=== PATIENT | male | born 1985 | race Caucasian/White ===

== ENCOUNTER → 2017-08-31 | Outpatient (REF) | payer BC | LOC: M LAB REF 08:31 | DX: J02.9 Acute pharyngitis, unspecified (principal) | CPT/HCPCS: 87070 ==

== ENCOUNTER → 2017-11-07 | Outpatient (REF) | payer BC | LOC: M SMT 13:42 | DX: Z30.2 Encounter for sterilization (principal) | CPT/HCPCS: 88302 ==

== ENCOUNTER 2017-11-25 10:45 | Emergency (ER) | payer BC ==
[2017-11-25] MEDS ORDERED: CLINDAMYCIN 150 MG CAP As Ordered (11:52)
[2017-11-25] MEDS: CLINDAMYCIN 150 MG CAP PO (12:00)
== END 2017-11-25 12:06 | disposition home or self-care (01) ==
LOC: M ED 10:45
DX: L08.9 Local infection of the skin and subcutaneous tissue, unspecified (principal); Z98.52 Vasectomy status; Z79.899 Other long term (current) drug therapy; Z79.2 Long term (current) use of antibiotics; Z79.52 Long term (current) use of systemic steroids
CPT/HCPCS: 99282

== ENCOUNTER → 2018-08-05 | Outpatient (CLI) | payer OTHER ==
[~2018-08-05] MED LIST: BENA25TA10 PO; CLAR1TAB2 PO; CLIN150C14 PO; IBUP-1022 PO; KETO2CR TOP; PRED20TA PO; SULFAMETHOXAZOLE-TMP PO
--- NOTE | 2018-08-05 19:39 | REP ---
Right hand four views History: Injury There is no acute fracture or dislocation. The joint spaces are normal in appearance. Impression: There is no acute fracture or dislocation. Electronically Signed by Jaren Saenz MD 08/05/2018 07:30 P
== END ==
LOC: M LRY 19:11
PROVIDERS: ATTEND Nurse Practitioner Family
DX: S69.91XA Unspecified injury of right wrist, hand and finger(s), initial encounter (principal); W31.9XXA Contact with unspecified machinery, initial encounter; Y92.89 Other specified places as the place of occurrence of the external cause

== ENCOUNTER → 2018-09-18 | Outpatient (REF) | payer BC | LOC: M LAB REF 12:20 | PROVIDERS: ATTEND Physician Assistant | DX: J02.9 Acute pharyngitis, unspecified (principal) ==

== ENCOUNTER → 2018-11-19 | Outpatient (CLI) | payer BC ==
--- NOTE | 2018-11-19 16:48 | REP ---
Left toes four views History: Contusion left fifth toe There is a nondisplaced fracture of the base of the proximal phalange of the 5th digit. There is no dislocation. The joint spaces are normal in appearance. Impression: Nondisplaced fracture of the the fifth proximal phalange. Electronically Signed by Jaren Saenz MD 11/19/2018 04:39 P
== END ==
LOC: M WUC 16:27
PROVIDERS: ATTEND Physician Assistant
DX: S92.535A Nondisplaced fracture of distal phalanx of left lesser toe(s), initial encounter for closed fracture (principal); X58.XXXA Exposure to other specified factors, initial encounter; Y92.9 Unspecified place or not applicable

== ENCOUNTER 2020-01-14 16:42 | Day surgery (SDC) | payer BC ==
[~2020-01-14] VITALS: Ht 185.4 cm; Wt 125.7 kg
[~2020-01-14 16:42] MED LIST changes: -AMOX875T2 PO; -GASTROGRAFIN SOLUTION 30ML (Q9963) As Ordered ONE; -ISOVUE-370 76% 100ML VIAL As Ordered ONE; -PERCOCET PO
[2020-01-14] MEDS ORDERED: NS 1,000 ML IV SCH (17:00)
[2020-01-14] MEDS ORDERED: PIPERACILLIN/TAZOBACTAM SOD 3.375 GM in D5W MINI-BAG PLUS 50 ML IV ONE (17:00)
[2020-01-14] MEDS ORDERED: LR 1,000 ML IV SCH ×2 (18:15→21:00)
[2020-01-14] MEDS ORDERED: LIDOCAINE 2% 100MG/5ML SDV (FOR ANES.) As Ordered ONE (19:21)
[2020-01-14] MEDS ORDERED: MIDAZOLAM INJ 2MG/2ML VIAL (J2250 PER 1MG) As Ordered ONE (19:21)
[2020-01-14] MEDS ORDERED: fentaNYL 100 MCG/2 ML INJECTION (J3010) As Ordered ONE ×3 (19:21→21:01)
[2020-01-14] MEDS ORDERED: ROCURONIUM BROMIDE 50 MG/5 ML VIAL As Ordered ONE (19:21)
[2020-01-14] MEDS ORDERED: dexameTHASONE 4 MG/ML 1ML VIAL (J1100 PER 1MG) As Ordered ONE (19:21)
[2020-01-14] MEDS ORDERED: ONDANSETRON 4MG/2ML VIAL As Ordered ONE (19:21)
[2020-01-14] MEDS ORDERED: KETOROLAC 60MG 2ML VIAL As Ordered ONE (19:21)
[2020-01-14] MEDS ORDERED: SUGAMMADEX SODIUM 500 MG/5 ML VIAL (BRIDION) As Ordered ONE (19:21)
[2020-01-14] MEDS ORDERED: METOCLOPRAMIDE INJ 10MG/2ML VIAL (J2765 PER 1) As Ordered ONE (19:21)
[2020-01-14] MEDS ORDERED: propofoL 200 MG/20 ML VIAL As Ordered ONE ×2 (19:21→20:02)
[2020-01-14] MEDS ORDERED: BUPIVACAINE HCL 0.25% 30ML VIAL As Ordered ONE (19:35)
[2020-01-14] MEDS ORDERED: LIDOCAINE 1% SDV 30ML VIAL As Ordered ONE (19:35)
[2020-01-14] MEDS ORDERED: ACETAMINOPHEN 1000MG 100ML IV BTL (OFIRMEV) (J0131 PER 10MG) As Ordered ONE (20:10)
[2020-01-14] MEDS ORDERED: ONDANSETRON 4MG/2ML VIAL IV PRN ×2 (21:00→21:15)
[2020-01-14] MEDS ORDERED: PERCOCET 5MG/325MG TAB PO PRN (21:15)
[2020-01-14] MEDS ORDERED: KETOROLAC 30 MG/ML 1ML VIAL IV PRN (21:15)
[2020-01-14] MEDS ORDERED: MORPHINE 2 MG/ML 1ML VIAL (J2270) IV PRN (21:15)
[2020-01-14] MEDS ORDERED: ACETAMINOPHEN TAB 650MG DOSE (2X325MG) PO PRN (21:15)
[2020-01-14] MEDS ORDERED: oxyCODONE 5MG TAB As Ordered ONE (21:18)
[2020-01-14] MEDS: fentaNYL 100 MCG/2 ML INJECTION (J3010) IV PRN ×4 (21:23→21:37)
[2020-01-14] MEDS: oxyCODONE 5MG TAB PO PRN ×2 (21:23→21:49)
[2020-01-14 22:00] VITALS: BP 118/83
[2020-01-14] MEDS: LR 1,000 ML IV SCH (22:21)
[2020-01-14 22:30] VITALS: BP 116/78
[2020-01-14 23:00] VITALS: BP 116/76
[2020-01-14] MEDS: AMPICILLIN SOD/SULBACTAM SOD 3 GM in D5W MINI-BAG PLUS 100 ML IV SCH (23:58)
[2020-01-15] VITALS: BP 114/73
[2020-01-15 01:00] VITALS: BP 108/69
[2020-01-15 02:00] VITALS: BP 107/68
[2020-01-15] MEDS: PERCOCET 5MG/325MG TAB PO PRN ×2 (02:37→08:10)
[2020-01-15 03:00] VITALS: BP 104/67
[2020-01-15 06:00] VITALS: BP 105/65
[2020-01-15] MEDS: AMPICILLIN SOD/SULBACTAM SOD 3 GM in D5W MINI-BAG PLUS 100 ML IV SCH ×2 (06:04→12:00)
[2020-01-15 06:49] LABS: BASO % 0.1 % (0.0-1.0); HEMATOCRIT 42.1 % (42.0-52.0); HEMOGLOBIN 13.8 g/dl (13.5-17.5); LYMPH # 0.8 10^3/uL (1.5-5.0); LYMPH % 11.1 % (24.0-44.0); MEAN CORPUSCULAR HEMOGLOBIN 27.6 pg (27.0-33.0); MEAN CORPUSCULAR HGB CONC 32.8 g/dl (32.0-36.5); MEAN CORPUSCULAR VOLUME 84.2 fl (80.0-96.0); MONO # 0.4 10^3/uL (0.0-0.8); MONO % 4.9 % (0.0-5.0); NEUTROPHILS # 6.3 10^3/uL (1.5-8.5); NEUTROPHILS % 83.5 % (36.0-66.0); PLATELET COUNT, AUTOMATED 313 10^3/uL (150-450); WHITE BLOOD COUNT 7.6 10^3/uL (4.0-10.0)
[2020-01-15 07:13] LABS: BLOOD UREA NITROGEN 9 MG/DL (7-18); CALCIUM LEVEL 8.5 MG/DL (8.5-10.1); CARBON DIOXIDE LEVEL 26 MEQ/L (21-32); CHLORIDE LEVEL 102 MEQ/L (98-107); CREATININE FOR GFR 0.67 MG/DL (0.70-1.30); GLOMERULAR FILTRATION RATE > 60.0 (>60); GLUCOSE, FASTING 113 MG/DL (70-100); POTASSIUM SERUM 4.3 MEQ/L (3.5-5.1); SODIUM LEVEL 138 MEQ/L (136-145)
[2020-01-15] MEDS: LR 1,000 ML IV SCH (08:12)
--- NOTE | 2020-01-15 08:54 | ROOPDOC ---
[facility] Report Of Operation Report of Operation DATE OF PROCEDURE: 01/14/20 PREPROCEDURE DIAGNOSES: Acute Appendicitis POSTPROCEDURE DIAGNOSES: Acute Appendicitis. PROCEDURE: Laparoscopic Appendectomy. SURGEON: Nabeel Hernández MD SUPERVISOR HOT DIP PLATING: ANESTHESIA: General Anesthesia. ESTIMATED BLOOD LOSS: Approximately 10 mL. COMPLICATIONS: none. PROCEDURE NOTE: Distended, acutely inflamed and thickened appendix throughout its course, thickened mesoappendix. The tip of the appendix may be focally perforated. Small amount of serous murky fluid in the right gutter, serous fluid in the pelvis.. DESCRIPTION OF PROCEDURE: Patient has been given a dose of Zosyn at the emergency room.Patient was brought to the operating room, placed supine on the table. Sequential compression device placed for DVT prophylaxis. General endotracheal anesthesia started. The abdomen prepped and draped in usual sterile fashion. We paused for a surgical timeout using both pre-incision safety checklist to verify correct patient, procedure site and additional clinical information prior to beginning the procedure Entry into the abdomen done through an incision above the umbilicus. Veress needle inserted on a controlled fashion. Intra-abdominal placement confirmed with saline drop technique. CO2 insufflation started to a pressure of 15 mmHg. Using the same incision an 8 mm port was placed under direct vision of laparoscope. Insertion site was inspected for injury and none was found. He was placed on a Trendelenburg position the right side tilted to about 30 to allow for better visualization of the appendix. Two 5 mm working ports were placed at the suprapubic area and left lower quadrant area under direct vision. An 8 mm port was exchanged for the umbilical port site. Operative findings: The appendix is visualized at the right gutter slightly and updated in its course. It appears acutely congested, thickened and inflamed throughout its course. The mesoappendix also appears thickened and shortened. This does not extend into the cecum. The insertion of the appendix is close to the insertion of the terminal ileum. There is small amount of murky fluid at the right gutter. There is serous fluid in the pelvis. Visualized portions small bowel appears within normal limits. The Surrounding bowels retracted away from the appendix. This was grasped to pull the base of the appendix into view. The mesoappendix was divided using Harmonic scalpel down to the base. Two PDS Endoloops were placed to ligate the appendix at its base then divided with a Harmonic Scalpel the stump cauterized. Stump appears healthy. Appendix was then delivered into an Endo Catch bag and extracted through the umbilical port site which was slightly enlarged to accommodate a 10 mm bag.. After re-insufflation the surgical site was inspected for hemostasis, the visualized fluid collections suctioned off. Surrounding areas of the abdomen and inspected for fluid collections or signs of injury. A 10 flat KAREN drain was left in place close to the abdomen initial stump for monitoring and for drainage of fluid irrigation. The abdomen was deflated. All ports removed. The umbilical fascial defect repaired with 0 Vicryl in a mattress fashion. All skin incisions closed with 4-0 Monocryl in a subcuticular fashion. Steri-Strips and gauze dressing used for wound coverage. Patient was promptly awake and extubated and brought to recovery room stable. All counts of sponges and instruments verified to be correct. NABEEL HERNÁNDEZ MD Jan 15, 2020 08:54
--- NOTE | 2020-01-15 08:57 | IPNPDOC ---
Text Note Date of Service The patient was seen on 01/15/20. NOTE Patient reports some mild increased discomfort at the umbilical port site as well as the right lower quadrant area when he was ambulating this morning, had some difficulty sleeping. Otherwise he is hemodynamically stable, afebrile. On examination Overall looks more comfortable than his presentation, mild discomfort with movement Abdomen is nondistended, soft. He has 3 port sites. The left lower quadrant port site is covered with a 2 x 2 gauze and a Tegaderm from the oozing not much skin bruising visible. The other port sites are covered with Dermabond are clean and dry. Mild discomfort on palpation around the umbilicus minimal at the right lower quadrant area. His labs were reviewed WBC is normal. Impression and plan Postop day 1 following laparoscopic appendectomy for acute appendicitis I have try some solid foods today for lunch time and if he tolerates this should be able to go home. I will continue him on a week's worth of antibiotics as I think there is a focal perforation at the tip. Follow-up in clinic in 2 weeks. VS,Ele, I+O VS, Ele, I+O Laboratory Tests 01/15/20 06:23 Vital Signs Date Time Temp Pulse Resp B/P (MAP) Pulse Ox O2 Delivery O2 Flow Rate FiO2 01/15/20 08:10 16 01/15/20 06:00 97.9 70 105/65 (78) 97 Room Air 01/14/20 21:49 2.0 I&O- Last 24 Hours up to 6 AM 01/15/20 06:00 Intake Total 2120 ml Output Total 10 ml Balance 2110 ml REGAN WANG MD Jan 15, 2020 08:57
[2020-01-15] MEDS ORDERED: SENOKOT S TAB PO SCH (09:00)
[2020-01-15] MEDS ORDERED: PERCOCET PO (09:19)
[2020-01-15] MEDS ORDERED: AMOX875T2 PO (09:20)
== END 2020-01-15 13:06 | disposition home or self-care (01) ==
LOC: M ED 16:42 → M SDC 17:55 → ENRESERV 21:03 → M MSPAV 21:58 → M SDC 01-15 13:06
PROVIDERS: ATTEND Surgery
DX: K35.890 Other acute appendicitis without perforation or gangrene (principal)
CPT/HCPCS: 36415; 44970; 80048; 85025; 88304; 96361; 96365; 96375; 99284; J0131; J1100; J1885; J2250; J2405; J2543; J2765; J3010; U0002

== ENCOUNTER → 2020-01-14 | Outpatient (CLI) | payer BC ==
[~2020-01-14] MED LIST changes: +AMOX875T2 PO; +GASTROGRAFIN SOLUTION 30ML (Q9963) As Ordered ONE; +ISOVUE-370 76% 100ML VIAL As Ordered ONE; +PERCOCET PO
[2020-01-14 15:11] LABS: BASO # 0.1 10^3/uL (0.0-0.2); BASO % 0.4 % (0.0-1.0); EOS % 0.3 % (0.0-3.0); HEMATOCRIT 45.5 % (42.0-52.0); HEMOGLOBIN 14.8 g/dl (13.5-17.5); LYMPH # 1.4 10^3/uL (1.5-5.0); LYMPH % 11.9 % (24.0-44.0); MEAN CORPUSCULAR HEMOGLOBIN 27.5 pg (27.0-33.0); MEAN CORPUSCULAR HGB CONC 32.5 g/dl (32.0-36.5); MEAN CORPUSCULAR VOLUME 84.6 fl (80.0-96.0); MONO # 0.8 10^3/uL (0.0-0.8); MONO % 6.9 % (0.0-5.0); NEUTROPHILS # 9.4 10^3/uL (1.5-8.5); NEUTROPHILS % 80.1 % (36.0-66.0); PLATELET COUNT, AUTOMATED 320 10^3/uL (150-450); RED BLOOD COUNT 5.38 10^6/uL (4.30-6.10); WHITE BLOOD COUNT 11.7 10^3/uL (4.0-10.0)
[2020-01-14 15:36] LABS: ALBUMIN 4.2 GM/DL (3.2-5.2); ALT/SGPT 24 U/L (12-78); BILIRUBIN,TOTAL 0.6 MG/DL (0.2-1.0); BLOOD UREA NITROGEN 10 MG/DL (7-18); CALCIUM LEVEL 8.8 MG/DL (8.5-10.1); CARBON DIOXIDE LEVEL 26 MEQ/L (21-32); CHLORIDE LEVEL 103 MEQ/L (98-107); CREATININE FOR GFR 0.69 MG/DL (0.70-1.30); GLOMERULAR FILTRATION RATE > 60.0 (>60); GLUCOSE, FASTING 76 MG/DL (70-100); LIPASE 109 U/L (73-393); POTASSIUM SERUM 3.7 MEQ/L (3.5-5.1); SODIUM LEVEL 135 MEQ/L (136-145); TOTAL PROTEIN 8.3 GM/DL (6.4-8.2)
--- NOTE | 2020-01-15 00:33 | REP ---
REASON FOR EXAM: Right lower quadrant pain. There are no priors for comparison. CONTRAST: 100 mL Isovue-370. The lung bases are clear. The liver, gallbladder, spleen, pancreas, adrenal glands, and kidneys are within normal limits. The abdominal aorta and para-aortic regions are within normal limits. There is no free fluid or free air in the abdomen. The appendix is abnormally dilated, and there is fatty infiltration in the mesoappendix and surrounding the appendix. There is no evidence of an intra-abdominal or intrapelvic mass or adenopathy. The osseous structures are within normal limits. IMPRESSION: Acute appendicitis. Electronically Signed by Canelo Pickett DO 01/15/2020 08:17 A
== END ==
LOC: M RAD 14:48
PROVIDERS: ATTEND Physician Assistant
DX: K35.80 Unspecified acute appendicitis (principal)
CPT/HCPCS: 36415; 74177; 80053; 83690; 85025; Q9963; Q9967

== ENCOUNTER → 2020-08-12 | Outpatient (CLI) | payer SELFPAY ==
[~2020-08-12] MED LIST changes: +AMOX875T2 PO; -CLIN150C14 PO; +CLIN150C15 PO; +PERCOCET PO
== END ==
LOC: M LABSMTC 10:32
PROVIDERS: ATTEND Pediatrics
DX: Z20.822 Contact with and (suspected) exposure to COVID-19 (principal)

== ENCOUNTER 2022-01-29 11:22 | Emergency (ER) | payer BC ==
[~2022-01-29] VITALS: Ht 185.4 cm; Wt 129.6 kg
[~2022-01-29 11:22] MED LIST changes: -CLIN150C15 PO; +CLIN150C17 PO
[2022-01-29 11:23] VITALS: BP 130/90
[2022-01-29] MEDS ORDERED: AMPH1TAB2 (11:36)
[2022-01-29] MEDS ORDERED: HYDR50TA70 (11:36)
[2022-01-29] MEDS ORDERED: CLON0.5T2 (11:36)
[2022-01-29] MEDS ORDERED: LIDOCAINE 5% (LIDODERM) PATCH TD ONE (14:05)
[2022-01-29] MEDS ORDERED: KETOROLAC 60MG 2ML VIAL IM ONE (14:05)
[2022-01-29] MEDS ORDERED: HYDR-3713 PO (14:13)
[2022-01-29] MEDS ORDERED: IBUP-1022 PO (14:13)
[2022-01-29] MEDS ORDERED: ASPE4PAD TOP (14:13)
[2022-01-30] MEDS ORDERED: **NOTE PATIENT COMMENT** MISC XX ONE (02:00)
== END 2022-01-29 14:59 | disposition home or self-care (01) ==
LOC: M ED 11:22
DX: S29.001A Unspecified injury of muscle and tendon of front wall of thorax, initial encounter (principal); W11.XXXA Fall on and from ladder, initial encounter; Y92.099 Unspecified place in other non-institutional residence as the place of occurrence of the external cause
CPT/HCPCS: 71101; 96372; 99284; J1885

== ENCOUNTER 2022-08-20 11:19 | Inpatient (IN) | payer BC, OTHER ==
[~2022-08-20] VITALS: Ht 185.4 cm; Wt 112.6 kg
[~2022-08-20 11:19] MED LIST changes: +AMPH1TAB2; +ASPE4PAD TOP; +CLON0.5T2 PO; +HYDR-3713 PO; +HYDR50TA70 PO; +ONDA4TAB6 PO
[2022-08-20 12:13] LABS: HEMOGLOBIN 14.1 g/dl (13.5-17.5); MEAN CORPUSCULAR HEMOGLOBIN 27.3 pg (27.0-33.0); MEAN CORPUSCULAR VOLUME 85.1 fl (80.0-96.0); PLATELET COUNT, AUTOMATED 372 10^3/uL (150-450); RED BLOOD COUNT 5.17 10^6/uL (4.30-6.10); WHITE BLOOD COUNT 5.5 10^3/uL (4.0-10.0)
[2022-08-20 12:37] LABS: ETHYL ALCOHOL (ETHANOL) 0.047 % (0.000-0.010)
[2022-08-20 12:39] LABS: SALICYLATE LEVEL < 3.0 MG/DL (<30)
[2022-08-20 12:40] LABS: ACETAMINOPHEN LEVEL < 2.0 UG/ML (10.0-20.0); ALBUMIN 4.1 G/DL (3.2-5.2); ALKALINE PHOSPHATASE 86 U/L (46-116); ALT/SGPT 19 U/L (7.0-40); AST/SGOT 24 U/L (<34); BILIRUBIN,DIRECT < 0.1 MG/DL (<0.4); BILIRUBIN,TOTAL 0.3 MG/DL (0.3-1.2); BLOOD UREA NITROGEN 8 MG/DL (9-23); CALCIUM LEVEL 8.7 MG/DL (8.5-10.1); CARBON DIOXIDE LEVEL 26 MMOL/L (20-31); CHLORIDE LEVEL 106 MMOL/L (98-107); CREATININE FOR GFR 0.71 MG/DL (0.70-1.30); GLOMERULAR FILTRATION RATE > 60.0 (>60); GLUCOSE, FASTING 79 MG/DL (60-100); POTASSIUM SERUM 4.1 MMOL/L (3.5-5.1); SODIUM LEVEL 142 MMOL/L (136-145); TOTAL PROTEIN 7.2 G/DL (5.7-8.2)
[2022-08-20 12:43] LABS: THYROID STIMULATING HORMONE 0.626 uIU/ML (0.55-4.78)
[2022-08-20 14:19] LABS: AMPHETAMINES LEVEL URINE NEGATIVE (NEGATIVE); BARBITURATES URINE NEGATIVE (NEGATIVE); BENZODIAZEPINES URINE NEGATIVE (NEGATIVE); COCAINE METABOLITE URINE NEGATIVE (NEGATIVE); METHADONE URINE NEGATIVE (NEGATIVE); OPIATES URINE NEGATIVE (NEGATIVE); PHENCYCLIDINE URINE NEGATIVE (NEGATIVE)
[2022-08-20 14:28] LABS: CANNABINOIDS URINE POSITIVE (NEGATIVE)
[2022-08-20] MEDS ORDERED: LORA-622 PO (14:41)
[2022-08-20] MEDS ORDERED: ADDE30TA PO (14:41)
[2022-08-20] MEDS ORDERED: FLON1SPR NARES (14:41)
[2022-08-20] MEDS ORDERED: VITA100093 PO (14:41)
[2022-08-20] MEDS ORDERED: VITA250T4 PO (14:41)
[2022-08-20] MEDS ORDERED: ADDE20TA PO (14:41)
[2022-08-20] MEDS ORDERED: HOME MED LIST COMPLETE! XX SCH (14:45)
[2022-08-20] MEDS ORDERED: ADDERALL 5 MG TAB PO ONE (16:00)
[2022-08-20] MEDS ORDERED: clonazePAM 0.5 MG TAB PO PRN (17:25)
[2022-08-20] MEDS: hydrOXYzine 50 MG TAB PO PRN (21:25)
[2022-08-21] MEDS: LORATADINE 10 MG TAB PO SCH (09:00)
[2022-08-21] MEDS ORDERED: ASCORBIC ACID 250 MG TAB PO SCH (09:00)
[2022-08-21] MEDS: ADDERALL 5 MG TAB PO SCH (09:45)
[2022-08-21] MEDS: VITAMIN D 1,000 INTERNATIONAL UNITS TABLET PO SCH (09:45)
[2022-08-21] MEDS: hydrOXYzine 50 MG TAB PO PRN ×2 (12:56→22:43)
[2022-08-21] MEDS ORDERED: ADDERALL 5 MG TAB PO SCH (16:00)
[2022-08-22] MEDS ORDERED: OLANZapine ORAL DISINTEGRATING TAB 5MG PO ONE (03:35)
[2022-08-22] MEDS: VITAMIN D 1,000 INTERNATIONAL UNITS TABLET PO SCH (08:47)
[2022-08-22] MEDS: ADDERALL 5 MG TAB PO SCH (08:48)
[2022-08-22] MEDS: LORATADINE 10 MG TAB PO SCH (08:48)
[2022-08-22 09:07] VITALS: BP 132/97
[2022-08-22 09:11] VITALS: BP 132/97
[2022-08-22] MEDS ORDERED: LORazepam 2 MG TAB PO PRN (09:20)
[2022-08-22] MEDS ORDERED: MOM 30ML SUSPENSION UDC PO PRN (09:20)
[2022-08-22] MEDS ORDERED: MAALOX 30 ML SUSP *UDC PO PRN (09:20)
[2022-08-22] MEDS ORDERED: FLUTICASONE PROP 0.05% NASAL SPRAY 16 GM (FLONASE) NARES PRN (09:20)
[2022-08-22] MEDS ORDERED: OLANZapine ORAL DISINTEGRATING TAB 5MG PO PRN (09:20)
[2022-08-22] MEDS ORDERED: IBUPROFEN 400MG TAB PO PRN (09:20)
[2022-08-22] MEDS: FOLIC ACID 1MG TAB PO SCH (12:49)
[2022-08-22] MEDS: MULTIVITAMINS/MINERALS THERAP 1 TAB PO SCH (12:49)
[2022-08-22] MEDS: THIAMINE 100 MG TAB PO SCH ×2 (12:49→20:29)
[2022-08-22] MEDS: ASCORBIC ACID 250 MG TAB PO SCH (12:49)
[2022-08-22 14:17] VITALS: BP 132/79
[2022-08-22 16:41] VITALS: BP 128/72
[2022-08-22] MEDS: traZODone 50 MG TAB PO PRN (20:29)
[2022-08-23 06:27] VITALS: BP 145/88
[2022-08-23 08:00] VITALS: BP 145/88
[2022-08-23] MEDS: LORATADINE 10 MG TAB PO SCH (08:54)
[2022-08-23] MEDS: FOLIC ACID 1MG TAB PO SCH (08:56)
[2022-08-23] MEDS: MULTIVITAMINS/MINERALS THERAP 1 TAB PO SCH (08:56)
[2022-08-23] MEDS: THIAMINE 100 MG TAB PO SCH ×2 (08:56→20:49)
[2022-08-23] MEDS: VITAMIN D 1,000 INTERNATIONAL UNITS TABLET PO SCH (08:56)
[2022-08-23] MEDS: ASCORBIC ACID 250 MG TAB PO SCH (08:56)
[2022-08-23 16:00] VITALS: BP 127/73
[2022-08-23 16:13] VITALS: BP 127/73
[2022-08-23] MEDS: traZODone 50 MG TAB PO PRN (20:52)
[2022-08-23 22:00] VITALS: BP 130/89
[2022-08-24 06:39] VITALS: BP 100/64
[2022-08-24] MEDS: ASCORBIC ACID 250 MG TAB PO SCH (08:44)
[2022-08-24] MEDS: VITAMIN D 1,000 INTERNATIONAL UNITS TABLET PO SCH (08:44)
[2022-08-24] MEDS: FOLIC ACID 1MG TAB PO SCH (08:44)
[2022-08-24] MEDS: MULTIVITAMINS/MINERALS THERAP 1 TAB PO SCH (08:44)
[2022-08-24] MEDS: LORATADINE 10 MG TAB PO SCH (08:45)
== END 2022-08-24 10:48 | disposition home or self-care (01) | DRG 753 ==
LOC: M ED 11:19 → M ED INP 08-22 09:19 → M PSY 08-22 11:54
PROVIDERS: ADMIT Student in an Organized Health Care Education/Training Program; ATTEND Psychiatry & Neurology Psychiatry
DX: F39 Unspecified mood [affective] disorder (principal); F10.94 Alcohol use, unspecified with alcohol-induced mood disorder; F12.10 Cannabis abuse, uncomplicated; F90.9 Attention-deficit hyperactivity disorder, unspecified type; R45.851 Suicidal ideations; Z20.822 Contact with and (suspected) exposure to COVID-19; Z63.0 Problems in relationship with spouse or partner; Z83.3 Family history of diabetes mellitus; Z79.899 Other long term (current) drug therapy

== ENCOUNTER → 2022-10-11 | Outpatient (CLI) | payer OTHER ==
[~2022-10-11] MED LIST changes: +ADDE20TA PO; +ADDE30TA PO; +FLON1SPR NARES; +LORA-622 PO; +VITA100093 PO; +VITA250T4 PO
== END ==
LOC: M WUC 15:44
PROVIDERS: ATTEND Nurse Practitioner Family
DX: S92.352A Displaced fracture of fifth metatarsal bone, left foot, initial encounter for closed fracture (principal); Y93.9 Activity, unspecified; Y92.9 Unspecified place or not applicable

== ENCOUNTER 2023-02-04 03:03 | Emergency (ER) | payer OTHER ==
[~2023-02-04] VITALS: Ht 193 cm; Wt 137.0 kg
[2023-02-04 03:03] VITALS: BP 133/83; TEMP 97.4; O2SAT 97
== END 2023-02-04 06:43 | disposition left against medical advice (07) ==
LOC: M ED 03:03
DX: Z53.21 Procedure and treatment not carried out due to patient leaving prior to being seen by health care provider (principal)

== ENCOUNTER → 2023-02-05 | Outpatient (REF) | payer OTHER | LOC: M LAB REF 09:48 | PROVIDERS: ATTEND Physician Assistant Medical | DX: B88.9 Infestation, unspecified (principal); R21 Rash and other nonspecific skin eruption ==

== ENCOUNTER → 2023-02-06 | Outpatient (REF) | payer OTHER ==
[2023-02-06 17:40] LABS: BASO # 0.1 10^3/uL (0.0-0.2); EOS # 0.5 10^3/uL (0.0-0.5); EOS % 8.5 % (0.0-3.0); HEMATOCRIT 43.7 % (42.0-52.0); HEMOGLOBIN 13.8 g/dl (13.5-17.5); LYMPH # 1.7 10^3/uL (1.5-5.0); LYMPH % 26.4 % (24.0-44.0); MEAN CORPUSCULAR HEMOGLOBIN 27.4 pg (27.0-33.0); MEAN CORPUSCULAR HGB CONC 31.6 g/dl (32.0-36.5); MEAN CORPUSCULAR VOLUME 86.7 fl (80.0-96.0); MONO # 0.4 10^3/uL (0.0-0.8); MONO % 7.1 % (2.0-8.0); NEUTROPHILS # 3.5 10^3/uL (1.5-8.5); NEUTROPHILS % 56.7 % (36.0-66.0); PLATELET COUNT, AUTOMATED 379 10^3/uL (150-450); RED BLOOD COUNT 5.04 10^6/uL (4.30-6.10); WHITE BLOOD COUNT 6.2 10^3/uL (4.0-10.0)
== END ==
LOC: M LAB REF 16:46
PROVIDERS: ATTEND Physician Assistant Medical
DX: R21 Rash and other nonspecific skin eruption (principal); B88.9 Infestation, unspecified

== ENCOUNTER → 2023-02-15 | Outpatient (REF) | payer OTHER | LOC: M LAB REF 11:42 | PROVIDERS: ATTEND Physician Assistant Medical | DX: H05.019 Cellulitis of unspecified orbit (principal) ==